=== PATIENT | female | born 1935 | race Caucasian/White ===

== ENCOUNTER 2024-02-11 17:40 | Inpatient (IN) | payer OTHER, BC ==
[2024-02-11] MEDS ORDERED: ACETAMINOPHEN INJECTION 100 ML IVPB ONE (19:05)
[2024-02-11] MEDS ORDERED: MAG HYDROX/AL HYDROX/SIMETH 30 ML UNIT-DOSE CUP ONE (19:06)
[2024-02-11] MEDS ORDERED: ONDANSETRON 4 MG/2 ML VIAL ONE (19:06)
[2024-02-11 19:08] LABS: BASO % 0.8 % (0-2.0); EOS % 0.2 % (0-4.5); LYMPH % 13.3 % (8-40); MCH 31.9 pg (25.7-33.7); MCHC 33.4 g/dl (32.0-36.0); MEAN CELL VOLUME 95.4 fl (80-96); MEAN PLT VOLUME 8.1 fl (7.5-11.1); MONO % 8.4 % (3.8-10.2); NEUT % 77.3 % (42.8-82.8); PLATELET COUNT 201 10^3/uL (134-434); RBC 4.09 M/mm3 (3.60-5.2); RDW 14.4 % (11.6-15.6); WHITE BLOOD COUNT 8.7 K/mm3 (4.0-10.0)
[2024-02-11] MEDS: MAG HYDROX/AL HYDROX/SIMETH 30 ML UNIT-DOSE CUP PO ONE (19:08)
[2024-02-11] MEDS: SODIUM CHLORIDE 0.9% 500 ML INFUS.BAG IV ONE ×2 (19:09→20:43)
[2024-02-11] MEDS: ACETAMINOPHEN 1000 MG/100 ML BAG IVPB ONE (19:09)
[2024-02-11] MEDS: ONDANSETRON 4 MG/2 ML VIAL IVPUSH ONE (19:10)
[2024-02-11 19:28] LABS: POTASSIUM 4.7 mmol/L (3.5-5.1)
[2024-02-11 19:30] LABS: ALBUMIN 3.6 g/dl (3.4-5.0); BLOOD UREA NITROGEN 41.7 mg/dL (7-18); CALCIUM 9.1 mg/dL (8.5-10.1)
[2024-02-11 19:31] LABS: MAGNESIUM 2.1 mg/dL (1.8-2.4)
[2024-02-11 19:34] LABS: CREATININE 1.3 mg/dL (0.55-1.3)
[2024-02-11 19:35] LABS: BILIRUBIN,TOTAL 0.5 mg/dL (0.2-1)
[2024-02-11 19:36] LABS: TOT PROT 6.4 g/dl (6.4-8.2)
[2024-02-11] MEDS ORDERED: FAMOTIDINE 10 MG/ML VIAL IVPB ONE (20:32)
[2024-02-11] MEDS: FAMOTIDINE 20 MG/50 ML IVPB 20 MG/50 ML MG IVPB ONE (20:42)
[2024-02-11 22:24] LABS: PH,URINE 5.5 (5.0-8.0); URINE APPEARANCE CLEAR; URINE BILIRUBIN NEGATIVE (NEGATIVE); URINE COLOR YELLOW; URINE GLUCOSE (UA) NEGATIVE (NEGATIVE); URINE KETONE 1+ (NEGATIVE); URINE LEUK ESTERASE NEGATIVE (NEGATIVE); URINE NITRITE NEGATIVE (NEGATIVE); URINE PROTEIN NEGATIVE (NEGATIVE); URINE UROBILINOGEN 0.2 mg/dL (0.2-1.0)
[2024-02-11] MEDS: DEXTROSE 50%-WATER 25 GM/50 ML DISP.SYRIN IVPUSH ONE (22:43)
[2024-02-11] MEDS ORDERED: DEXTROSE 50%-WATER 25 GM/50 ML DISP.SYRIN ONE (22:43)
[2024-02-12] MEDS ORDERED: ONDANSETRON 4 MG/2 ML VIAL IVPUSH PRN (00:51)
[2024-02-12] MEDS ORDERED: ATORVASTATIN CA 40 MG TABLET (FP) ONE (03:00)
[2024-02-12] MEDS ORDERED: PANTOPRAZOLE SODIUM 40 MG VIAL ONE (03:00)
[2024-02-12] MEDS: ATORVASTATIN CA 40 MG TABLET (FP) PO SCH (03:26)
[2024-02-12] MEDS: PANTOPRAZOLE SODIUM 40 MG VIAL IVPUSH ONE (03:26)
[2024-02-12] MEDS: SODIUM CHLORIDE 1,000 ML IV SCH (03:42)
[2024-02-12 04:39] VITALS: BMI 17.9
[2024-02-12] MEDS: HEPARIN NA (PORCINE) 5,000 UNITS/ML 1ML VIAL SQ SCH (06:17)
[2024-02-12] MEDS: DEXTROSE 50%-WATER 25 GM/50 ML DISP.SYRIN IVPUSH ONE (07:02)
[2024-02-12 07:55] LABS: HEMATOCRIT 40.1 % (32.4-45.2); HEMOGLOBIN 13.3 GM/dL (10.7-15.3); MCH 31.9 pg (25.7-33.7); MCHC 33.1 g/dl (32.0-36.0); MEAN CELL VOLUME 96.3 fl (80-96); MEAN PLT VOLUME 8.6 fl (7.5-11.1); PLATELET COUNT 204 10^3/uL (134-434); RBC 4.17 M/mm3 (3.60-5.2); RDW 14.1 % (11.6-15.6); WHITE BLOOD COUNT 7.4 K/mm3 (4.0-10.0)
[2024-02-12 08:16] LABS: POTASSIUM 4.1 mmol/L (3.5-5.1)
[2024-02-12 08:20] LABS: CALCIUM 8.5 mg/dL (8.5-10.1)
[2024-02-12 08:21] LABS: ALBUMIN 3.3 g/dl (3.4-5.0); BLOOD UREA NITROGEN 30.6 mg/dL (7-18); MAGNESIUM 2.2 mg/dL (1.8-2.4)
[2024-02-12 08:24] LABS: CREATININE 1.1 mg/dL (0.55-1.3); PHOSPHOROUS 3.3 mg/dL (2.5-4.9)
[2024-02-12 08:25] LABS: BILIRUBIN,TOTAL 0.4 mg/dL (0.2-1); TOT PROT 6.1 g/dl (6.4-8.2)
[2024-02-12] MEDS ORDERED: PANTOPRAZOLE SODIUM 40 MG VIAL IVPUSH SCH (10:00)
[2024-02-12] MEDS: MAG HYDROX/AL HYDROX/SIMETH 30 ML UNIT-DOSE CUP PO SCH (10:23)
[2024-02-12 11:26] VITALS: BP 131/61; RESP 18; TEMP 98.1
[2024-02-12 11:27] VITALS: PULSE 85
[2024-02-13] MEDS ORDERED: PANTOPRAZOLE SODIUM 40 MG VIAL IVPUSH SCH (10:00)
== END 2024-02-12 11:21 | disposition home health service (06) | DRG 641 ==
LOC: JER 17:40 → JERBED 02-12 01:00 → OBSVTOIN 02-12 02:20 → J7W 02-12 04:13
PROVIDERS: ADMIT Internal Medicine; ATTEND Internal Medicine
DX: E87.1 Hypo-osmolality and hyponatremia (principal); N13.30 Unspecified hydronephrosis; N13.4 Hydroureter; A09 Infectious gastroenteritis and colitis, unspecified; N17.9 Acute kidney failure, unspecified; J98.11 Atelectasis; I10 Essential (primary) hypertension; E78.5 Hyperlipidemia, unspecified; E86.0 Dehydration
CPT/HCPCS: 0241U-QW; 36415; 70450-TC; 74176-TC; 76705-TC; 76775-TC; 80053; 81003; 82306; 82746; 82962; 83036; 83690; 83735; 84100; 84443; 84484; 85025; 85027; 87086; 93005; 93010; 99285-25; G0378; J0131; J1644